=== PATIENT | female | born 1960 | race Caucasian/White ===

== ENCOUNTER → 2023-04-05 | Outpatient (CLI) | payer BC | END | disposition home or self-care (01) | LOC: RAH 14:01 | PROVIDERS: ATTEND Internal Medicine Nephrology | DX: Z12.31 Encounter for screening mammogram for malignant neoplasm of breast (principal) | CPT/HCPCS: 77067 ==

== ENCOUNTER → 2024-04-16 | Outpatient (CLI) | payer MEDICARE | END | disposition home or self-care (01) | LOC: RAH 13:13 | PROVIDERS: ATTEND Internal Medicine Nephrology | DX: Z12.31 Encounter for screening mammogram for malignant neoplasm of breast (principal) | CPT/HCPCS: 77067 ==

== ENCOUNTER → 2024-04-22 | Outpatient (CLI) | payer MEDICARE | END | disposition home or self-care (01) | LOC: RAH 13:59 | PROVIDERS: ATTEND Internal Medicine Nephrology | DX: Z13.820 Encounter for screening for osteoporosis (principal); Z12.31 Encounter for screening mammogram for malignant neoplasm of breast; M85.89 Other specified disorders of bone density and structure, multiple sites; M81.0 Age-related osteoporosis without current pathological fracture; Z78.0 Asymptomatic menopausal state | CPT/HCPCS: 77080 ==

== ENCOUNTER → 2024-06-19 | Outpatient (CLI) | payer MEDICARE ==
[2024-06-19 21:31] VITALS: PULSE 59; RESP 12
[2024-06-19 22:00] VITALS: PULSE 57; RESP 14
[2024-06-19 22:31] VITALS: PULSE 57; RESP 12
[2024-06-19 23:02] VITALS: PULSE 56; RESP 12
[2024-06-19 23:35] VITALS: PULSE 57; RESP 12
[2024-06-20] VITALS (10 sets, daily range): PULSE 53–60; RESP 10–12
== END | disposition home or self-care (01) ==
LOC: SLP 20:26
PROVIDERS: ATTEND Internal Medicine Nephrology
DX: R06.02 Shortness of breath (principal); R06.83 Snoring; G47.30 Sleep apnea, unspecified
CPT/HCPCS: 95810

== ENCOUNTER → 2024-06-28 | Outpatient (CLI) | payer MEDICARE ==
[2024-06-28 22:14] VITALS: PULSE 60; RESP 14
[2024-06-28 23:00] VITALS: PULSE 54; RESP 12
[2024-06-28 23:30] VITALS: PULSE 52; RESP 12
[2024-06-29] VITALS (11 sets, daily range): PULSE 50–56; RESP 10–14
== END | disposition home or self-care (01) ==
LOC: SLP 20:24
PROVIDERS: ATTEND Internal Medicine Nephrology
DX: G47.33 Obstructive sleep apnea (adult) (pediatric) (principal); R06.02 Shortness of breath
CPT/HCPCS: 95811

== ENCOUNTER → 2025-04-01 | Outpatient (CLI) | payer MEDICARE ==
--- NOTE | 2025-04-02 03:33 | HMCIMG ---
EXAM: CR Right Hand, 3 views. CLINICAL HISTORY: Pain. COMPARISON: None provided. FINDINGS: No acute fracture or aggressive appearing osseous lesion. Mild osteopenia. Mild osteoarthritis. The soft tissues are unremarkable. IMPRESSION: No acute bony abnormality is evident. Mild osteopenia. Mild osteoarthritis. /[place]
== END | disposition home or self-care (01) ==
LOC: RAH 07:44
PROVIDERS: ATTEND Internal Medicine Nephrology
DX: M19.031 Primary osteoarthritis, right wrist (principal); M85.88 Other specified disorders of bone density and structure, other site; M79.641 Pain in right hand
CPT/HCPCS: 73110

== ENCOUNTER → 2025-04-18 | Outpatient (CLI) | payer MEDICARE | END | disposition home or self-care (01) | LOC: RAH 09:02 | PROVIDERS: ATTEND Internal Medicine Nephrology | DX: Z12.31 Encounter for screening mammogram for malignant neoplasm of breast (principal) | CPT/HCPCS: 77067 ==